=== PATIENT | female | born 1960 | race African-American/Black ===

== ENCOUNTER 2020-05-02 10:49 | Emergency (ER) | payer OTHER ==
[~2020-05-02] VITALS: Ht 154.9 cm; Wt 115.9 kg
[2020-05-02] MEDS ORDERED: CHOL100018 PO (11:07)
[2020-05-02] MEDS ORDERED: ASPI-1111 PO (11:07)
[2020-05-02] MEDS ORDERED: ISOS10TA16 PO (11:07)
[2020-05-02] MEDS ORDERED: CLON0.2T PO (11:07)
[2020-05-02] MEDS ORDERED: ALBU8.5H8 IH (11:07)
[2020-05-02] MEDS ORDERED: ATOR40TA28 PO (11:07)
[2020-05-02] MEDS ORDERED: AMLO10TA7 PO (11:07)
[2020-05-02] MEDS ORDERED: FURO20 PO (11:07)
[2020-05-02] MEDS ORDERED: LISI-662 PO (11:07)
[2020-05-02] MEDS ORDERED: INSU100V36 SQ (11:07)
[2020-05-02] MEDS ORDERED: GABA-1181 PO (11:07)
[2020-05-02] MEDS ORDERED: RANO500T3 PO (11:07)
[2020-05-02] MEDS ORDERED: NITR0.4T52 SL (11:07)
[2020-05-02] MEDS ORDERED: INSLAN SQ (11:07)
[2020-05-02] MEDS ORDERED: METO50 PO (11:07)
[2020-05-02] MEDS ORDERED: DULA1.5P SQ (11:07)
[2020-05-02] MEDS ORDERED: TraMADol HCL 50 MG TABLET PO ONE (12:30)
[2020-05-02] MEDS ORDERED: CAPSAICIN 0.025% 60 GM CREAM TP ONE (12:30)
[2020-05-02 13:48] VITALS: BP 145/85
[2020-05-02 19:16] LABS: GLUCOSE,POINT OF CARE 124 MG/DL (70-110)
== END 2020-05-02 14:12 | disposition home or self-care (01) ==
LOC: EMS 10:50
DX: G62.9 Polyneuropathy, unspecified (principal); M79.605 Pain in left leg; R20.2 Paresthesia of skin; I11.0 Hypertensive heart disease with heart failure; I50.9 Heart failure, unspecified; E11.9 Type 2 diabetes mellitus without complications; Z79.4 Long term (current) use of insulin; Z79.82 Long term (current) use of aspirin; Z79.899 Other long term (current) drug therapy